=== PATIENT | female | born 1970 | race Caucasian/White ===

== ENCOUNTER 2023-06-19 10:01 | Outpatient (RCR) | payer BC, SELFPAY | END 2023-06-19 23:59 | disposition home or self-care (01) | LOC: RST 10:01 | PROVIDERS: ATTENDING PHYSICIAN Radiology Radiation Oncology; FAMILY PHYSICIAN Family Medicine | DX: C10.9 Malignant neoplasm of oropharynx, unspecified (principal); R13.12 Dysphagia, oropharyngeal phase | CPT/HCPCS: 92526 ==

== ENCOUNTER 2023-07-10 11:07 | Outpatient (RCR) | payer BC, SELFPAY | END 2023-07-10 23:59 | disposition home or self-care (01) | LOC: RST 11:07 | PROVIDERS: ATTENDING PHYSICIAN Radiology Radiation Oncology; FAMILY PHYSICIAN Family Medicine | DX: C10.9 Malignant neoplasm of oropharynx, unspecified (principal); R13.12 Dysphagia, oropharyngeal phase | CPT/HCPCS: 92526 ==

== ENCOUNTER → 2023-08-15 13:31 | Outpatient (REF) | payer BC, SELFPAY | LOC: RAD 13:31 | PROVIDERS: ATTENDING PHYSICIAN Otolaryngology; FAMILY PHYSICIAN Family Medicine | DX: C06.0 Malignant neoplasm of cheek mucosa (principal) | CPT/HCPCS: 71270; Q9967 ==

== ENCOUNTER 2023-08-28 10:10 | Outpatient (RCR) | payer BC, SELFPAY | END 2023-08-28 23:59 | disposition home or self-care (01) | LOC: RST 10:10 | PROVIDERS: ATTENDING PHYSICIAN Radiology Radiation Oncology; FAMILY PHYSICIAN Family Medicine | DX: C10.9 Malignant neoplasm of oropharynx, unspecified (principal); R13.12 Dysphagia, oropharyngeal phase | CPT/HCPCS: 92526 ==

== ENCOUNTER → 2023-08-28 14:41 | Outpatient (REF) | payer BC, SELFPAY | LOC: HWRAD 14:41 | PROVIDERS: ATTENDING PHYSICIAN Otolaryngology; FAMILY PHYSICIAN Family Medicine | DX: K76.89 Other specified diseases of liver (principal) | CPT/HCPCS: 74160; Q9967 ==

== ENCOUNTER 2023-09-14 12:50 | Inpatient (IN) | payer BC, SELFPAY ==
[2023-09-14] VITALS (11 sets, daily range): BP systolic 105–126; BP diastolic 64–83; BMI 20.6; BMI 20.7
--- NOTE | 2023-09-14 06:11 | ED.GENMED ---
History of Present Illness
General
Chief Complaint: Skin Problem
Source: patient
Exam Limitations: none
Time Seen by Provider: 09/14/23 04:51
Nursing documentation reviewed up to this point in time: agreed with
Travel History
Have you had any contact with someone who has COVID-19?: No
Do you have any symptoms of coronavirus? Fever > 100 degrees, chills, cough, shortness of breath, sore throat, loss of taste or smell, muscle aches, or headache?: No
History of Present Illness
History of Present Illness:
53-year-old female presents with painful swelling with drainage from the flap on the left side of her face history of head neck cancer followed by Dr. Davila ENT oncology at [facility] has had 2 flaps most recently January 2023 has
been on amoxicillin for about 4 days without much relief has increased swelling but she always has some swelling now drainage no fever chills with feels generally unwell no vomiting
Past History
Past History
ED Past Medical History: Cancer
ED Past Surgical History: Other (Flap from the thigh flap from the forearm to the face)
Social History
Tobacco: Non-smoker
Alcohol: None
Living: with family
Review of Systems
Review of Systems
All Other Systems: Not applicable
Constitutional: Denies fatigue or chills
EENT: Reports other (Swelling from the left side of the face and drainage)
Respiratory: Reports no symptoms
Cardiac: Reports no symptoms
ABD/GI: Reports no symptoms; Denies abdominal pain or nausea
: Reports no symptoms
Musculoskeletal: Reports no symptoms
Psychiatric: Reports no symptoms
Phy Exam
Physical Exam
Physical Exam:
Physical Exam
General: no apparent distress, not acutely ill
Neck: Swollen surgical flap in the left face minimally tender no warmth mild drainage
Heart: s1/s2 regular rate and rhythm, no murmur. equal radial pulses.
Lungs: no acute respiratory distress.
Neuro: alert and oriented. no focal neurological deficits
Skin: no rash
Psychiatric: well kept. interactive and cooperative
Extremities: no edema.
Course
Orders/Labs/Results
Orders:
Orders
09/14/23 06:10
CT Facial Bones W/ Iv Contrast Urgent
Comment:
Reason For Exam: infected flap
0.9% Sodium Chloride 1000 ml [Nss] 1,000 ml IV BOLUS
Acetaminophen 1000MG/100Ml [Ofirmev] 1,000 mg in 100 ml IV ONCE
Acetaminophen IV Indication:: ED Narcotic Naive Pt-ONCE
09/14/23 06:52
Complete Blood Count/With Diff Urgent
Comprehensive Metabolic Panel Urgent
Lactic Acid Q4H
Comment: CANCEL 2nd LACTIC ACID IF 1st LACTIC ACID IS LESS THAN 2
Blood Culture Q30M
YOSEF Source: Blood/Venous
Specimen Description:
Blood Culture Q30M
YOSEF Source: Blood/Venous
Specimen Description:
09/14/23 09:53
Vancomycin 1000 mg IVPB NOW Vancomycin 1 Gram/200 ml [Vancocin] 1 gram in 200 ml IV NOW
Abnormal Lab Results
09/14/23
06:52
WBC 14.1 H 10^3/uL
(4.8-10.8)
RBC 2.83 L 10^6/uL
(4.20-5.40)
Hgb 8.0 L g/dL
(12.0-16.0)
Hct 24.2 L %
(37.0-47.0)
RDW 14.6 H %
(11.5-14.5)
Abs Immat Gran (auto) 0.1 H 10^3/uL
(0-0.05)
Absolute Neuts (auto) 12.2 H 10^3/uL
(1.4-6.5)
Absolute Lymphs (auto) 0.7 L 10^3/uL
(1.2-3.4)
Absolute Monos (auto) 0.9 H 10^3/uL
(0.1-0.6)
Immature Gran % 0.6 H %
(0-0.5)
Neutrophils % 86.6 H %
(42.2-75.2)
Lymphocytes % 5.1 L %
(20.5-51.1)
Sodium 134 L mmol/L
(135-145)
BUN 25 H mg/dl
(7-17)
Creatinine 0.4 L mg/dL
(0.6-1.0)
Glucose 107 H mg/dl
(70-99)
Lactic Acid 0.6 L mmol/L
(0.7-2.0)
09/14/23 06:52
09/14/23 06:52
Vital Signs
Initial and Last Documented VS:
Initial Vital Signs
Temp Pulse Resp BP Pulse Ox
98.2 F 88 18 118/81 99
09/14/23 04:19 09/14/23 04:19 09/14/23 04:19 09/14/23 04:19 09/14/23 04:19
Last Documented Vital Signs
Temp Pulse Resp BP Pulse Ox
98.2 F 90 18 126/73 96
09/14/23 04:19 09/14/23 09:19 09/14/23 04:19 09/14/23 09:19 09/14/23 08:45
MDM/Problems Addressed
Differential Diagnosis Includes:
Infection cellulitis seroma abscess recurrence of cancer
MDM/Problems Addressed:
Facial swelling
Chronic conditions affecting care:
Head and neck cancer
Acute Exacerbation and/or Progression of Chronic Illness:
Head and neck cancer
*Radiology
Radiology exam reviewed: preliminary read by ED provider
*Pulse Oximetry
Patient hypoxic: no
*Critical Care Note
Total Time (30-74mins, 75-104mins- exclusive of procedures): Not Applicable
Update Note
Update Note:
Update patient is nontoxic does have some drainage her face flap is swollen that she states slowly swollen has not been the bulk yet will check labs cultures CT scan disposition??
9:45 AM CAT scan report noted labs noted believe the patient would benefit from IV antibiotics I do not see any clear indication for transfer as there is no collection message sent to hospitalist will start IV antibiotics here
ED Attending Note
-
Portions of this chart may have been created with voice recognition software.� Occasional wrong word or��sound alike� substitutions may have occurred due to the inherent limitations of voice recognition software.
Discharge Plan
Departure
Patient Disposition: Admit
Date of Disposition: 09/14/23
Time of Disposition: 09:53
Admit to: Med/Surg
Presentation/result/management discussed w/ accepting MD/DO: Hospitalist
Patient with high blood pressure during this ER visit?: No
Condition: Fair
Discharge Problem:
Cellulitis of face
Prescriptions:
No Action
levothyroxine 100 MCG tablet
100 mcg PO DAILY@0700 Qty: 30 0RF
acetaminophen [Tylenol] 325 mg Tablet
650 mg PO Q4H PRN (Reason: pain)
aspirin 325 mg Tablet
325 mg PO DAILY
Referrals:
Nury Dalton MD [Family Provider] -
Interventions
Interventions:
*Risk Screen - Suicide Last Done: 09/14/23 04:19
*General Assessment Last Done: 09/14/23 04:19
*Neglect/Abuse Screening Last Done: 09/14/23 04:19
ED- Fall Risk Assessment Last Done: 09/14/23 04:19
*ED COVID-19 Vaccine History Last Done: 09/14/23 04:19
ED-Skin Assessment Last Done: 09/14/23 06:49
[2023-09-14] MEDS: OFIRMEV 100 IV (06:56)
[2023-09-14] MEDS: NSS 1000 IV ×2 (06:56→10:23)
[2023-09-14 07:19] LABS: % Basophils 0.3 % (0-2); % Immature Granulocytes 0.6 % (0-0.5); % Lymphocytes 5.1 % (20.5-51.1); % Monocytes 6.4 % (1.7-9.3); % Neutrophils 86.6 % (42.2-75.2); Absolute Eosinophils 0.1 10^3/uL (0-0.7); Absolute Immature Granulocytes 0.1 10^3/uL (0-0.05); Absolute Lymphocytes 0.7 10^3/uL (1.2-3.4); Absolute Monocytes 0.9 10^3/uL (0.1-0.6); Absolute Neutrophils 12.2 10^3/uL (1.4-6.5); Hematocrit 24.2 % (37.0-47.0); Mean Corp Hgb Conc. 33.1 g/dL (33.0-37.0); Mean Corpuscular Hgb 28.3 pg (27.0-31.0); Mean Corpuscular Volume 85.5 fL (81.0-99.0); Mean Platelet Volume 8.9 fL (7.4-10.4); Nucleated Red Blood Cells % 0 %; Platelet Count 380 10^3/uL (130-400); Red Blood Cell Count 2.83 10^6/uL (4.20-5.40); Red Cell Dist. Width 14.6 % (11.5-14.5); White Blood Cell Count 14.1 10^3/uL (4.8-10.8)
[2023-09-14 07:31] LABS: ALT (SGPT) 12 U/L (0-35); AST (SGOT) 18 U/L (14-36); Albumin 3.7 g/dl (3.5-5.0); Alkaline Phosphatase 107 U/L (38-126); Blood Urea Nitrogen 25 mg/dl (7-17); Calcium 9.2 mg/dl (8.4-10.2); Carbon Dioxide 22 mmol/L (22-30); Chloride 104 mmol/L (98-107); Estimated Creatinine Clearance 92 ml/min; Glucose 107 mg/dl (70-99); Potassium 4.3 mmol/L (3.5-5.1); Sodium 134 mmol/L (135-145); Total Bilirubin 0.5 mg/dl (0.2-1.3); Total Protein 6.9 g/dl (6.3-8.2); eGFR > 60.00
[2023-09-14 07:33] LABS: Lactic Acid 0.6 mmol/L (0.7-2.0)
[2023-09-14] MEDS: VANCOCIN 300 ML IV (10:06)
[2023-09-14] MEDS: VANCOCIN 300 MG IV (10:06)
[2023-09-14] MEDS: DILAUDID 1 MG IV (10:24)
--- NOTE | 2023-09-14 12:32 | HPS.HSE ---
Family Physician
-
Family Physician: Nury Dalton
Chief Complaint
-
Skin redness
History of Present Illness
53-year-old female with past medical history of buccal cancer status postchemotherapy and radiation, hypothyroidism, skin flap x 2, hypertension came to the hospital with painful swelling with mild drainage from the flap on the left side of her
face. Patient follows up with Dr. Gamez at [facility] who did 2 flaps on the left side of her face (last one in January 2023). Patient saw him on Sunday and they prescribed her amoxicillin. Patient has taken amoxicillin for about 3 days without
much relief. Denies any fever/chills. Denies any nausea, vomiting, diarrhea, denies any chest pain, shortness of breath.
Medical History
Past Medical History
Past Medical History: Reports Cancer (Buccal CA), HTN, Hypothyroidism and Other
Past Surgical History: Reports Other (Buccal cancer surgery, facial flap)
Social History
Tobacco: Non-smoker
Alcohol: None
Family History
Family History: Not pertinent
Allergies / Home Medications
Allergies reflects when Allergies were last updated in [employer].
Home Medications with original date entered in [employer]
Allergy/Medication List:
Allergies
Allergy/AdvReac Type Severity Reaction Status Date / Time
No Known Allergies Allergy Verified 09/14/23 04:17
Home Medications
aspirin 325 mg tablet 325 mg PO DAILY 03/22/23
acetaminophen 325 mg tablet (Tylenol) 650 mg PO Q4HPRN PRN mild pain 03/23/23
amoxicillin 875 mg-potassium clavulanate 125 mg tablet 1 tab PO BID 09/14/23
calcium carbonate 500 mg calcium (1,250 mg) tablet 500 mg PO DAILY 09/14/23
cyanocobalamin (vitamin B-12) 1,000 mcg tablet 1,000 mcg PO DAILY 09/14/23
levothyroxine 100 mcg tablet 100 mcg PO JOANN@0700 09/14/23
magnesium oxide 400 mg PO DAILY 09/14/23
vitamin B complex 1 cap PO DAILY 09/14/23
Review of Systems
-
History Source: Patient
A 12 point ROS was completed and negative except as noted: Yes
Physical Exam
Vital Signs
Vital Signs
Temp Pulse Resp BP Pulse Ox
97.6 F 71 16 110/70 96
09/14/23 10:31 09/14/23 12:00 09/14/23 10:31 09/14/23 12:00 09/14/23 12:00
Physical Exam
General: Well Nourished and No Apparent Distress
HEENT: Anicteric and Other (left facial flap; erythema)
Cardiac: S1/S2 and Regular Rhythm; No Tachycardia
Breast: Deferred by me
GI: Soft, Non Tender, Non Distended and Normal Bowel Sounds
Rectal: Deferred by Provider
Genito-urinary: Deferred by me
Musculoskeletal: No Edema
Neuro: Awake, Alert, Oriented and AO x 3
Psych: Calm and Intact Judgment/Insight
Laboratory Results
-
09/14/23 06:52
09/14/23 06:52
Laboratory Results
Lactic Acid Cancelled 09/14/23 10:15
Total Bilirubin 0.5 mg/dl (0.2-1.3) 09/14/23 06:52
AST 18 U/L (14-36) 09/14/23 06:52
ALT 12 U/L (0-35) 09/14/23 06:52
Alkaline Phosphatase 107 U/L (38-126) 09/14/23 06:52
Data Reviewed
-
CT Scan: Report Reviewed by me and Discussed with Patient
Lab Data: Labs Reviewed by me and Discussed with Patient
Impression/Plan
-
sepsis 2/2 Facial cellulitis in the setting of history of facial flap due to buccal carcinoma
s/p chemo and radiation at [facility]; last one in may 2023; 2 skin flaps (last one jan 2023); her left side face swollen at baseline per patient due to flap, she is due for debulking surgery outpatient
start vanc; ID evaluation
was taking Augmentin prior to admission
CT without distinct abscess
follow bcx
Anemia suspect anemia of chronic disease
Check iron panel, B12, folate
Mild hyponatremia
monitor
hx of htn
not on any meds
History of hypothyroidism
Continue Synthroid
DVT prophylaxis Lovenox
Full code
I spent a total of 76 minutes with the patient or on the floor. More than 50% of this time involved counseling and coordination of care.
--- NOTE | 2023-09-14 12:59 | PHA.VAN.IN ---
Assessment
- Assessment
Renal Function: Appears similar to baseline
AUC Dosing Plan
- Dosing Variables
Dosing Weight (kg): 54
Dosing CrCl (ml/min): 92
Vd coefficient (L/kg): 0.7
- Empiric Dosing
Initial / Loading Dose: 1500mg - 09/13 10:06
Maintenance Regimen: Vanc 750mg Q12H starting at 1800
Estimated AUC (mcg*h/mL): 511
Estimated Peak (mcg*h/mL): 32
Estimated Trough (mcg/ml): 13.2
Estimated Half Life (H): 8.6
- Monitoring
No levels ordered at this time: consider levels in next few days
Pharmacokinetics Vancomycin I
- -
Patient Age: 53
Patient Sex: Female
Vancomycin Day #: 1
Indication: Skin And Soft Tissue
Requesting Provider: Dr. Lorenz
Pertinent Antimicrobial Allergies:
NKDA
Height / Weight:
Height 5 ft 4 in
Actual Weight 54.431 kg
Pertinent Past Medical History: Buccal carcinoma
- Vital Signs / Lab Results
Temp Pulse Resp BP Pulse Ox
97.6 F 71 16 110/70 96
09/14/23 10:31 09/14/23 12:00 09/14/23 10:31 09/14/23 12:00 09/14/23 12:00
Lab Results - Hematology
09/14/23
06:52
WBC 14.1 H
Lab Results - Chemistry
09/14/23
06:52
BUN 25 H
Creatinine 0.4 L
Estimated Creat Clear 92
Albumin 3.7
09/14/23 09/14/23
06:52 10:15
Lactic Acid 0.6 L Cancelled
[2023-09-14 13:37] LABS: Iron 27 ug/dl (37-170)
[2023-09-14 13:46] LABS: Percent Saturation 10 % (20-50); Total Iron Binding Capacity 250 ug/dl (265-497)
[2023-09-14] MEDS: TYLENOL 650 MG PO (14:38)
[2023-09-14 14:45] LABS: Folate 15.6 ng/ml (2.76-20); Vitamin B12 > 1000 pg/ml (239-931)
--- NOTE | 2023-09-14 16:21 | PTOTSP ---
Dysphagia Evaluation
Patient has a history of moderate oral dysphagia and trismus secondary to buccal cancer and subsequent treatments (i.e., chemo/XRT, skin flap x2). She has excellent insight into her dysphagia. She denied any acute worsening of dysphagia with
solids but endorsed increase in aspiration signs with liquids (i.e., coughing with liquids - only when she 'rushes'.)
Assessment was limited to puree and thin liquids this date as patient declined solids available. She presents with an oral dysphagia (i.e., decreased labial seal on left, anterior loss on left) with no significant oral residue for consistencies
assessed and no signs of aspiration. As patient has excellent insight into her dysphagia, consider diet advancement below.
Recommend:
1. Regular diet order (to maximize choices) - with patient to select soft/moist foods from the menu
2. Thin liquids
3. Strategies: cut foods into small bite sized pieces, upright to 90 degrees, small sips/bites, liquid wash and/or lingual sweep to clear any oral residue
4. Medications as best tolerated
5. Will follow up briefly at the acute care level as able/appropriate for dysphagia education and therapeutic assessment. Outpatient therapy warranted after D/C.
--- NOTE | 2023-09-14 17:18 | CON.ID ---
Consultation
-
Date/Time Consultation Requested: 09/14/2023, 1224
Date/Time Consultation Performed: 09/14/2023, 1720
Requesting Provider: Dr. Luis Lorenz
Performing Provider: Dr. Carol Boudreaux
Reason for Consultation: Facial flap infection
Chief Complaint / Past History
Chief Complaint
Left jaw/neck redness with yellow drainage
History of Present Illness
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 3 days ago, she noted
drainage from left jaw with redness that extends down to her neck and chest. She saw the Plastic Surgeon right away who put her on Augmentin. She did not improve and therefore came to the ED. WBC 14. No fever. She reports the flap is chronically
indurated. However, the erythema below the flap is not normal.
Past History
Additional Past Medical History:
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
by chemo/XRT.
PORT placement
Hypothyroidism
HTN
Allergy History:
No Known Allergies Allergy (Verified 09/14/23 04:17)
Medications Reviewed: Yes
Current Antibiotics:
Vancomycin
Social History
Tobacco: Non-Smoker
Alcohol: None
Drug: None
Personal:
Living: With Family
Family History
Family History: Not Pertinent
Review of Systems
Review of Systems
General: Negative Fever, Chills or Change in Appetite
HEENT: Negative Sinus Problems, Headache or Pharyngitis
Respiratory: Negative Dyspnea or Cough
Gasteroenterology: Other (no diarrhea); Negative Nausea or Vomiting
Genital / Urological: Negative Dysuria or Flank Pain
Endocrine: Negative Weakness
Skin / Hair / Nails: Negative Rash
Neurological: Negative Headache or Dizziness
All systems: All other systems were reviewed and were negative
Vital Signs
Temp Pulse Resp BP Pulse Ox
97.6 F 77 14 114/80 97
09/14/23 14:56 09/14/23 14:56 09/14/23 14:56 09/14/23 14:56 09/14/23 14:02
Physical Exam
Physical Exam
Constitutional: No Acute Distress and Comfortable
Head: Other (Left cheek flap induration (chronic and normal per pt) without erythema. Along the margin of the flap + erythema from pre-auricular to mandible to neck, there is wound left mandible with serous drainage.)
Eyes: No Conjunctival Hemorrhage and Sclera Anicteric
Cardiovascular: Regular Rate and S1/S2
Pulmonary: Clear
Gastrointestinal: Soft, Non Tender, Non Distended and Decreased Bowel Sounds
Extremities: Negative Edema
Neurological: AO x 3
Lab / Diagnostic Study Results
09/14/23 06:52
09/14/23 06:52
Abs Immat Gran (auto) 0.1 10^3/uL (0-0.05) H 09/14/23 06:52
Absolute Neuts (auto) 12.2 10^3/uL (1.4-6.5) H 09/14/23 06:52
Absolute Lymphs (auto) 0.7 10^3/uL (1.2-3.4) L 09/14/23 06:52
Absolute Monos (auto) 0.9 10^3/uL (0.1-0.6) H 09/14/23 06:52
Absolute Basos (auto) 0.0 10^3/uL (0-0.2) 09/14/23 06:52
Immature Gran % 0.6 % (0-0.5) H 03/15/24 06:52
Neutrophils % 86.6 % (42.2-75.2) H 09/14/23 06:52
Lymphocytes % 5.1 % (20.5-51.1) L 09/14/23 06:52
Monocytes % 6.4 % (1.7-9.3) 09/14/23 06:52
Eosinophils % 1.0 % (0-6) 09/14/23 06:52
Basophils % 0.3 % (0-2) 09/14/23 06:52
Lactic Acid Cancelled 09/14/23 10:15
Microbiology Results
Micro:
09/14/23 15:32 MRSA Screen - Pending
Nose
09/14/23 06:52 Blood Culture - Pending
Blood/Venous
09/14/23 06:52 Blood Culture - Pending
Blood/Venous
09/14/[address]: Comparing to PET/CT scan of September 05, 2023, there is new ill-defined fluid and air density in the left parapharyngeal region extending adjacent to the posterior aspect of the left mandible. This would suggest infection in
this region. There is no well-defined fluid collection to suggest a drainable abscess at this time.
Assessment / Plan
# Left mandible cellulitis with draining wound
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
- Consider MRI of mandible.
- Add IV Unasyn.
- If MRSA screen negative, dc IV Vancomycin
[2023-09-14] MEDS: VANCOCIN 150 IV (17:24)
[2023-09-14] MEDS: LOVENOX 40 MG SC (17:25)
--- NOTE | 2023-09-14 17:30 | PTCARENOTE ---
Received pt from ER. Pt awake alert and oriented x 3. Pt has garbled speech r/t flap skin graft on Left face cheek, Pt c/o pain in left cheek medicated with tylenol prior to arrival to floor. Pt VSS 96% on RA.Pt has no c/o SOB, instructed to alert
staff with any changes in breathing, pt verbalized understanding. Pt has flap skin graft to left cheek, area below with redness, warmth extending down neck.Pt said redness was down chest prior to abx infusion, so some improvement noted. At base of
mandible open area with purulent drainage and odor. Pt using 4x4 and ABDs and changing frequently. Slow drip of purulent fluid. pt does feel like opening is larger, MD aware, could be related to pressure from fluid drainage. Pt oriented to room,call
marrero within reach, plan of care ongoing.
[2023-09-14] MEDS: UNASYN IV ×2 (18:23→23:28)
[2023-09-14] MEDS: TYLENOL 1000 MG PO (19:58)
[2023-09-15] MEDS: UNASYN IV ×4 (05:04→23:12)
[2023-09-15 05:31] LABS: % Basophils 0.6 % (0-2); % Eosinophils 3.1 % (0-6); % Immature Granulocytes 0.9 % (0-0.5); % Lymphocytes 12.1 % (20.5-51.1); % Monocytes 10.2 % (1.7-9.3); % Neutrophils 73.1 % (42.2-75.2); Absolute Eosinophils 0.2 10^3/uL (0-0.7); Absolute Immature Granulocytes 0.1 10^3/uL (0-0.05); Absolute Lymphocytes 0.8 10^3/uL (1.2-3.4); Absolute Monocytes 0.7 10^3/uL (0.1-0.6); Absolute Neutrophils 4.9 10^3/uL (1.4-6.5); Hematocrit 22.7 % (37.0-47.0); Hemoglobin 7.4 g/dL (12.0-16.0); Mean Corp Hgb Conc. 32.6 g/dL (33.0-37.0); Mean Corpuscular Hgb 27.9 pg (27.0-31.0); Mean Corpuscular Volume 85.7 fL (81.0-99.0); Mean Platelet Volume 8.7 fL (7.4-10.4); Nucleated Red Blood Cells % 0 %; Platelet Count 378 10^3/uL (130-400); Red Blood Cell Count 2.65 10^6/uL (4.20-5.40); Red Cell Dist. Width 14.6 % (11.5-14.5); White Blood Cell Count 6.8 10^3/uL (4.8-10.8)
[2023-09-15] MEDS: VANCOCIN 150 IV ×2 (05:42→17:53)
[2023-09-15] MEDS: SYNTHROID 100 MCG PO (05:43)
[2023-09-15] MEDS: TYLENOL 1000 MG PO ×4 (05:50→22:28)
[2023-09-15 05:54] VITALS: BMI 20.3
[2023-09-15 05:54] LABS: Blood Urea Nitrogen 13 mg/dl (7-17); Calcium 9.2 mg/dl (8.4-10.2); Carbon Dioxide 25 mmol/L (22-30); Chloride 103 mmol/L (98-107); Estimated Creatinine Clearance 92 ml/min; Glucose 98 mg/dl (70-99); Potassium 4.3 mmol/L (3.5-5.1); Sodium 136 mmol/L (135-145); eGFR > 60.00
[2023-09-15 07:45] VITALS: BP 117/72
[2023-09-15] MEDS: MAG-TAB SR 84 MG PO (08:27)
[2023-09-15] MEDS: VITAMIN B-12 1000 MCG PO (08:27)
[2023-09-15] MEDS: B COMPLEX w/VITAMIN C 1 CAPLET PO (08:27)
[2023-09-15] MEDS: OSCAL CAL 500 500 MG PO (08:27)
--- NOTE | 2023-09-15 08:46 | PHA.VAN.FU ---
Vancomycin Assessment / Plan
- Assessment
Renal Function: SCR Decreasing (0.4>0.3)
WBC's are: Trending Down (14.1>6.8)
In the past 24 hrs, patient has been: Afebrile
Concomitant Antimicrobials: Ampicillin-sulbactam
- Dosing Plan
Continue: Vancomycin 750mg IV Q12hrs
- Monitoring Plan
No level(s) ordered at this time: Will order levels according to vancomycin dosing protocol
- Follow Up
Pharmacy will continue to follow.
Vancomycin Follow UP
- -
Patient Age: 53
Patient Sex: Female
Vancomycin Day #: 2
Indication: Skin And Soft Tissue
Requesting Provider: Dr. Lorenz
Pertinent Antimicrobial Allergies:
NKDA
Height / Weight:
Height 5 ft 4 in
Actual Weight 53.552 kg
Pertinent Past Medical History: Buccal carcinoma
- Vital Signs / Lab Results
Temp Pulse Resp BP Pulse Ox
97.5 F 72 18 117/72 98
09/15/23 07:45 09/15/23 07:45 09/15/23 07:45 09/15/23 07:45 09/15/23 07:45
Lab Results - Hematology
09/14/23 09/15/23
06:52 05:04
WBC 14.1 H 6.8
Lab Results - Chemistry
09/14/23 09/15/23
06:52 05:04
BUN 25 H 13
Creatinine 0.4 L 0.3 L
Estimated Creat Clear 92 92
Albumin 3.7
09/14/23 09/14/23
06:52 10:15
Lactic Acid 0.6 L Cancelled
Microbiology Results
09/14/23 06:52 Blood Culture - Preliminary
Blood/Venous No Growth in 24 hours- Final report to follow
09/14/23 06:52 Blood Culture - Preliminary
Blood/Venous No Growth in 24 hours- Final report to follow
--- NOTE | 2023-09-15 10:08 | W.PN.ID1 ---
Date of Service
Date of Service: September 15, 2023
Today's Communication
Continue abx's.
Assessment / Plan
# Left mandible cellulitis with draining wound
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 Wound appears larger.
- If no significant improvement tomorrow, recommend MRI of mandible.
- Continue IV Unasyn (d2)
- If MRSA screen negative, dc IV Vancomycin
#Additional Past Medical History:
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
followed by chemo/XRT.
PORT placement
Hypothyroidism
HTN
Chief Complaint
-: Cellulitis
Subjective / Review of Systems
Reports left jaw drainage decreased.
Vital Signs / Physical Exam
Vital Signs
Vital Signs
Temp Pulse Resp BP Pulse Ox
97.5 F 72 18 117/72 98
09/15/23 07:45 09/15/23 07:45 09/15/23 07:45 09/15/23 07:45 09/15/23 07:45
Physical Exam
Constitutional: No Acute Distress and Comfortable
Head: Other (left mandibular wound appears larger with light yellow drainage. Erythema now more localized to wound area.)
Pulmonary: Clear
Objective Data
Lab Data
Lab Results
09/15/23 05:04
09/15/23 05:04
Estimated Creat Clear 92 ml/min 09/15/23 05:04
Lactic Acid Cancelled 09/14/23 10:15
Total Bilirubin 0.5 mg/dl (0.2-1.3) 09/14/23 06:52
AST 18 U/L (14-36) 09/14/23 06:52
ALT 12 U/L (0-35) 09/14/23 06:52
Alkaline Phosphatase 107 U/L (38-126) 09/14/23 06:52
Most recent labs reviewed.
Micro Results:
09/14/23 06:52 Blood Culture - Preliminary
Blood/Venous No Growth in 24 hours- Final report to follow
09/14/23 06:52 Blood Culture - Preliminary
Blood/Venous No Growth in 24 hours- Final report to follow
09/14/23 15:32 MRSA Screen - Pending
Nose
09/14/[address]: Comparing to PET/CT scan of September 05, 2023, there is new ill-defined fluid and air density in the left parapharyngeal region extending adjacent to the posterior aspect of the left mandible. This would suggest infection in
this region. There is no well-defined fluid collection to suggest a drainable abscess at this time.
Care Review
Plan reviewed with: Physician (Dr. licona)
--- NOTE | 2023-09-15 12:59 | W.PN.HOSP.TC ---
Today's Communication/Plan
-
Monitor vital signs and see plan
Continue with antibiotics per infectious disease
Repeat hemoglobin later today
Transfuse if hemoglobin less than 7
Blood consented, in chart
Assessment / Plan
Assessment / Plan
General: Well Nourished and No Apparent Distress
HEENT: Anicteric and Other (left facial flap; erythema)
Cardiac: S1/S2 and Regular Rhythm; No Tachycardia
Breast: Deferred by me
GI: Soft, Non Tender, Non Distended and Normal Bowel Sounds
Rectal: Deferred by Provider
Genito-urinary: Deferred by me
Musculoskeletal: No Edema
Neuro: Awake, Alert, Oriented and AO x 3
Psych: Calm and Intact Judgment/Insight
sepsis 2/2 Facial cellulitis in the setting of history of facial flap due to buccal carcinoma
s/p [facility]; last one in may 2023; 2 skin flaps (last one jan 2023); her left side face swollen at baseline per patient due to flap, she is due for debulking surgery outpatient
cw abx per ID; ID following
was taking Augmentin prior to admission
CT without distinct abscess
follow bcx NGTD
If symptoms do not improve then will get MRI mandible
Anemia suspect anemia of chronic disease
No definite bleed
Iron deficient, start IV iron
Repeat hemoglobin later today and transfuse hemoglobin less than 7; blood consented
Mild hyponatremia
Resolved
hx of htn
not on any meds
History of hypothyroidism
Continue Synthroid
DVT prophylaxis Lovenox
Full code
I spent a total of 52 minutes with the patient or on the floor. More than 50% of this time involved counseling and coordination of care.
Anticipated Discharge: > 48 hours
Subjective/Interval History
-
Date of Service: September 15, 2023
denies nausea
Objective Data
-
Labs:
Laboratory Results
09/15/23
05:04
WBC 6.8
Hgb 7.4 L
Hct 22.7 L
Plt Count 378
Sodium 136
Potassium 4.3
Chloride 103
Carbon Dioxide 25
BUN 13
Creatinine 0.3 L
Glucose 98
Calcium 9.2
Vital Signs:
Vital Signs
Temp Pulse Resp BP Pulse Ox
97.5 F 72 18 117/72 98
09/15/23 07:45 09/15/23 07:45 09/15/23 07:45 09/15/23 07:45 09/15/23 07:45
I&O
09/14/23 09/15/23 09/16/23
06:59 06:59 06:59
Intake Total 660 / 660
Balance 660 / 660
[2023-09-15] MEDS: FERRLECIT 110 MG IV (13:11)
[2023-09-15 15:28] VITALS: BP 115/77
--- NOTE | 2023-09-15 16:16 | CM ---
Alert awake oriented patient who lives with her Jonas and adult daughter who lives in a2 story home with 4 steps to enter and 10 steps to bed and bathroom.She is independent in driving and in all activities of daily living.Offered VN for
wound care and she declined.
No adaptive devices
Never had VN/SNF
Pharmacy [facility]
PCP Dr Dalton
PLAN Home declined VN
[2023-09-15 16:38] LABS: Hematocrit 22.5 % (37.0-47.0); Hemoglobin 7.5 g/dL (12.0-16.0)
[2023-09-15] MEDS: LOVENOX 40 MG SC (17:19)
[2023-09-15 23:49] VITALS: BP 116/77
[2023-09-15] MEDS: FLUSH (NSS) 1 FLUSH IV (23:55)
[2023-09-16] MEDS: UNASYN IV ×4 (05:14→23:00)
[2023-09-16] MEDS: VANCOCIN 150 IV (05:49)
[2023-09-16] MEDS: TYLENOL 1000 MG PO ×3 (05:55→18:33)
[2023-09-16 06:00] VITALS: BMI 20.3
[2023-09-16 06:00] LABS: % Basophils 1.3 % (0-2); % Eosinophils 4.4 % (0-6); % Immature Granulocytes 1.3 % (0-0.5); % Lymphocytes 14.8 % (20.5-51.1); % Monocytes 12.8 % (1.7-9.3); % Neutrophils 65.4 % (42.2-75.2); Absolute Basophils 0.1 10^3/uL (0-0.2); Absolute Eosinophils 0.2 10^3/uL (0-0.7); Absolute Immature Granulocytes 0.1 10^3/uL (0-0.05); Absolute Lymphocytes 0.8 10^3/uL (1.2-3.4); Absolute Monocytes 0.7 10^3/uL (0.1-0.6); Absolute Neutrophils 3.4 10^3/uL (1.4-6.5); Hematocrit 22.3 % (37.0-47.0); Hemoglobin 7.3 g/dL (12.0-16.0); Mean Corp Hgb Conc. 32.7 g/dL (33.0-37.0); Mean Corpuscular Hgb 27.9 pg (27.0-31.0); Mean Corpuscular Volume 85.1 fL (81.0-99.0); Mean Platelet Volume 8.8 fL (7.4-10.4); Nucleated Red Blood Cells % 0 %; Platelet Count 389 10^3/uL (130-400); Red Blood Cell Count 2.62 10^6/uL (4.20-5.40); Red Cell Dist. Width 14.6 % (11.5-14.5); White Blood Cell Count 5.2 10^3/uL (4.8-10.8)
[2023-09-16 06:25] LABS: Blood Urea Nitrogen 16 mg/dl (7-17); Calcium 8.9 mg/dl (8.4-10.2); Carbon Dioxide 24 mmol/L (22-30); Chloride 107 mmol/L (98-107); Estimated Creatinine Clearance 91 ml/min; Glucose 93 mg/dl (70-99); Potassium 4.1 mmol/L (3.5-5.1); Sodium 137 mmol/L (135-145); eGFR > 60.00
[2023-09-16 07:31] VITALS: BP 111/71
[2023-09-16] MEDS: VITAMIN B-12 1000 MCG PO (08:39)
[2023-09-16] MEDS: B COMPLEX w/VITAMIN C 1 CAPLET PO (08:39)
[2023-09-16] MEDS: OSCAL CAL 500 500 MG PO (08:39)
[2023-09-16] MEDS: MAG-TAB SR 84 MG PO (08:39)
--- NOTE | 2023-09-16 08:51 | W.PN.ID1 ---
Date of Service
Date of Service: September 16, 2023
Today's Communication
MRI mandible.
Assessment / Plan
# Left mandible cellulitis with draining wound
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
- Order MRI of mandible.
- Swab draining wound for cx (although may not reflect deep cx's)
- Continue IV Unasyn (d3)
- If MRSA screen negative, dc IV Vancomycin
#Additional Past Medical History:
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
followed by chemo/XRT.
PORT placement
Hypothyroidism
HTN
Chief Complaint
-: Cellulitis
Subjective / Review of Systems
Wound still draining
Vital Signs / Physical Exam
Vital Signs
Vital Signs
Temp Pulse Resp BP Pulse Ox
98.9 F 76 16 116/77 96
09/15/23 23:49 09/15/23 23:49 09/15/23 23:49 09/15/23 23:49 09/15/23 23:49
Physical Exam
Constitutional: No Acute Distress
Wound: Other (left mandible wound with surrounding erythema/induration, foul smelling drainage. )
Objective Data
Lab Data
Lab Results
09/16/23 05:32
09/16/23 05:32
Estimated Creat Clear 91 ml/min 09/16/23 05:32
Lactic Acid Cancelled 09/14/23 10:15
Total Bilirubin 0.5 mg/dl (0.2-1.3) 09/14/23 06:52
AST 18 U/L (14-36) 09/14/23 06:52
ALT 12 U/L (0-35) 09/14/23 06:52
Alkaline Phosphatase 107 U/L (38-126) 09/14/23 06:52
Most recent labs reviewed.
Micro Results:
09/14/23 06:52 Blood Culture - Preliminary
Blood/Venous No Growth in 48 hours- Final report to follow
09/14/23 06:52 Blood Culture - Preliminary
Blood/Venous No Growth in 48 hours- Final report to follow
09/14/23 15:32 MRSA Screen - Pending
Nose
09/14/[address]: Comparing to PET/CT scan of September 05, 2023, there is new ill-defined fluid and air density in the left parapharyngeal region extending adjacent to the posterior aspect of the left mandible. This would suggest infection in
this region. There is no well-defined fluid collection to suggest a drainable abscess at this time.
Care Review
Plan reviewed with: Physician (Dr. Brittney Lorenz)
[2023-09-16] MEDS: FLUSH (NSS) 2 FLUSH IV (11:19)
[2023-09-16 12:40] VITALS: BP 108/75
--- NOTE | 2023-09-16 12:50 | W.PN.HOSP.TC ---
Addendum entered and electronically signed by Luis Lorenz MD 09/18/23 11:55:
Unable to determine if cellulitis/osteomyelitis is secondary to previous surgery
Original Note:
Today's Communication/Plan
-
Monitor vitals
see plan
Continue with antibiotics
MRI
Transfuse 1 unit of PRBC
Assessment / Plan
Assessment / Plan
General: Well Nourished and No Apparent Distress
HEENT: Anicteric and Other (left facial flap; erythema)
Cardiac: S1/S2 and Regular Rhythm; No Tachycardia
Breast: Deferred by me
GI: Soft, Non Tender, Non Distended and Normal Bowel Sounds
Rectal: Deferred by Provider
Genito-urinary: Deferred by me
Musculoskeletal: No Edema
Neuro: Awake, Alert, Oriented and AO x 3
Psych: Calm and Intact Judgment/Insight
sepsis 2/2 Facial cellulitis in the setting of history of facial flap due to buccal carcinoma
s/p chemo and radiation at [facility]; last one in may 2023; 2 skin flaps (last one jan 2023); her left side face swollen at baseline per patient due to flap, she is due for debulking surgery outpatient
cw abx per ID; ID following
was taking Augmentin prior to admission
CT without distinct abscess
follow bcx NGTD
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 MRI ordered
follows up with Dr Gamez at [facility]
Anemia suspect anemia of chronic disease
No definite bleed
Iron deficient, started IV iron
hgb 7.3 today; transfuse 1 unit
Mild hyponatremia
Resolved
hx of htn
not on any meds
History of hypothyroidism
Continue Synthroid
DVT prophylaxis Lovenox
Full code
I spent a total of 53 minutes with the patient or on the floor. More than 50% of this time involved counseling and coordination of care.
Anticipated Discharge: > 48 hours
Subjective/Interval History
-
Date of Service: September 16, 2023
denies pain
Objective Data
-
Labs:
Laboratory Results
09/16/23
05:32
WBC 5.2
Hgb 7.3 L
Hct 22.3 L
Plt Count 389
Sodium 137
Potassium 4.1
Chloride 107
Carbon Dioxide 24
BUN 16
Creatinine 0.3 L
Glucose 93
Calcium 8.9
Vital Signs:
Vital Signs
Temp Pulse Resp BP Pulse Ox
97.9 F 80 16 108/75 98
09/16/23 12:40 09/16/23 12:40 09/16/23 12:40 09/16/23 12:40 09/16/23 12:40
I&O
09/15/23 09/16/23 09/17/23
06:59 06:59 06:59
Intake Total 660 / 660 1360 / 1360 0 / 0
Balance 660 / 660 1360 / 1360 0 / 0
[2023-09-16 12:57] VITALS: BP 115/74
[2023-09-16 15:27] VITALS: BP 117/71
[2023-09-16] MEDS: FERRLECIT 110 MG IV (15:54)
--- NOTE | 2023-09-16 18:23 | PTCARENOTE ---
Pt completed entire unit of PRBCs without any apparent reaction at 1527.
[2023-09-16] MEDS: LOVENOX 40 MG SC (18:24)
[2023-09-16 21:23] LABS: Transferrin 202 mg/dL (200-360)
[2023-09-16 23:35] VITALS: BP 121/71
[2023-09-17] MEDS: UNASYN IV ×2 (05:03→11:35)
[2023-09-17] MEDS: TYLENOL 1000 MG PO ×2 (05:08→12:11)
[2023-09-17] MEDS: SYNTHROID 100 MCG PO (05:42)
[2023-09-17 06:00] VITALS: BMI 20.3
[2023-09-17 07:35] VITALS: BP 124/82
[2023-09-17] MEDS: OSCAL CAL 500 500 MG PO (08:06)
[2023-09-17] MEDS: VITAMIN B-12 1000 MCG PO (08:06)
[2023-09-17] MEDS: MAG-TAB SR 84 MG PO (08:06)
[2023-09-17] MEDS: B COMPLEX w/VITAMIN C 1 CAPLET PO (08:06)
[2023-09-17 08:51] LABS: % Basophils 1.4 % (0-2); % Eosinophils 4.1 % (0-6); % Immature Granulocytes 1.8 % (0-0.5); % Lymphocytes 17.5 % (20.5-51.1); % Monocytes 12.2 % (1.7-9.3); Absolute Basophils 0.1 10^3/uL (0-0.2); Absolute Eosinophils 0.2 10^3/uL (0-0.7); Absolute Immature Granulocytes 0.1 10^3/uL (0-0.05); Absolute Lymphocytes 0.9 10^3/uL (1.2-3.4); Absolute Monocytes 0.6 10^3/uL (0.1-0.6); Absolute Neutrophils 3.2 10^3/uL (1.4-6.5); Hematocrit 26.9 % (37.0-47.0); Mean Corp Hgb Conc. 32.7 g/dL (33.0-37.0); Mean Corpuscular Volume 85.7 fL (81.0-99.0); Mean Platelet Volume 8.6 fL (7.4-10.4); Nucleated Red Blood Cells % 0 %; Platelet Count 437 10^3/uL (130-400); Red Blood Cell Count 3.14 10^6/uL (4.20-5.40); Red Cell Dist. Width 14.7 % (11.5-14.5); White Blood Cell Count 5.1 10^3/uL (4.8-10.8)
[2023-09-17 09:03] LABS: Blood Urea Nitrogen 12 mg/dl (7-17); Calcium 9.5 mg/dl (8.4-10.2); Carbon Dioxide 26 mmol/L (22-30); Chloride 103 mmol/L (98-107); Estimated Creatinine Clearance 91 ml/min; Glucose 97 mg/dl (70-99); Potassium 4.2 mmol/L (3.5-5.1); Sodium 139 mmol/L (135-145); eGFR > 60.00
[2023-09-17 09:07] LABS: Hemoglobin 8.8 g/dL (12.0-16.0)
--- NOTE | 2023-09-17 10:56 | W.PN.ID1 ---
Date of Service
Date of Service: September 17, 2023
Today's Communication
functional manager to set up home IV abx.
Assessment / Plan
# Left mandible cellulitis, draining wound, and osteomyelitis
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
- MRI of face: osteo of left mandible body, angle, and ramus. No osteonecrosis
- Swab draining wound for cx (although may not reflect deep cx's) GS: GPC
- MRSA screen negative, dc'd IV Vancomycin
- Recommend 6 weeks IV Unasyn (d4) 12g/24h continuous infusion through 10/25/23
Home infusion sheet submitted to case management.
#Additional Past Medical History:
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
followed by chemo/XRT.
PORT placement
Hypothyroidism
HTN
Chief Complaint
-: Cellulitis and Other
Vital Signs / Physical Exam
Vital Signs
Vital Signs
Temp Pulse Resp BP Pulse Ox
97.8 F 70 16 124/82 98
09/17/23 07:35 09/17/23 07:35 09/17/23 07:35 09/17/23 07:35 09/17/23 07:35
Physical Exam
Constitutional: No Acute Distress
Pulmonary: Clear
Gastrointestinal: Soft, Non Tender and Non Distended
Wound: Other (left mandible wound with bright erythema, neck and facial erythema resolving)
Objective Data
Lab Data
Lab Results
09/17/23 07:59
09/17/23 07:59
Estimated Creat Clear 91 ml/min 09/17/23 07:59
Lactic Acid Cancelled 09/14/23 10:15
Total Bilirubin 0.5 mg/dl (0.2-1.3) 09/14/23 06:52
AST 18 U/L (14-36) 09/14/23 06:52
ALT 12 U/L (0-35) 09/14/23 06:52
Alkaline Phosphatase 107 U/L (38-126) 09/14/23 06:52
Most recent labs reviewed.
Micro Results:
09/16/23 10:46 Wound Culture - Preliminary
Abscess Gram Stain - Preliminary
09/16/23 10:46 Anaerobic Culture - Preliminary
Wound-Superficial Culture pending. Anaerobic cultures are examined after 3
days incubation. Additional information to follow.
09/14/23 06:52 Blood Culture - Preliminary
Blood/Venous No Growth in 72 hours- Final report to follow
09/14/23 06:52 Blood Culture - Preliminary
Blood/Venous No Growth in 72 hours- Final report to follow
09/14/23 15:32 MRSA Screen - Final
Nose No Methicillin Resistant Staphylococcus aureus isolated.
09/14/[address]: Comparing to PET/CT scan of September 05, 2023, there is new ill-defined fluid and air density in the left parapharyngeal region extending adjacent to the posterior aspect of the left mandible. This would suggest infection in
this region. There is no well-defined fluid collection to suggest a drainable abscess at this time.
09/17/23: MRI face wo and w contrast: Postsurgical changes in the left buccal/facial region. There is increased T2 and STIR signal as well as enhancing intermediate T1-weighted signal involving the body, angle, and ramus of the left mandible. These
findings are suspicious for osteomyelitis. See above discussion. No MR findings to suggest osteonecrosis of the mandible. Enhancing intermediate T1-weighted signal within the left facial region, surrounding the left mandible mainly, also extending
superiorly in the masseter space and deep to the zygomatic arch. This is suggestive of cellulitis, although there could also be a component from previous radiation therapy. There are small foci of decreased enhancement adjacent to the mandibular
angle and ramus, mainly lateral, and would suggest small infected collections, probably best seen on axial sequence 902, images 37 through 30.
--- NOTE | 2023-09-17 11:41 | W.PN.HOSP.TC ---
Addendum entered and electronically signed by Andrei Duarte MD 09/20/23 07:47:
Acute osteomyelitis
Addendum entered and electronically signed by Andrei Duarte MD 09/17/23 12:51:
Total time spent on d/c = 31 min. This included today's physical exam, progress note, review of laboratory and diagnostic data, preparation of discharge documents and prescriptions, and discussions about the pt's hospital course and discharge plan
with the patient and other medical translator involved in the patient's care.
Original Note:
Today's Communication/Plan
-
d/c
Assessment / Plan
Assessment / Plan
Gen: NAD, AAOx3.
Eyes: EOMI, PERRLA, no scleral icterus.
ENMT: L face with prominent/protruding soft tissue
Neck: supple.
CV: RRR, +S1/S2, no m/r/g.
Resp: CTAB, no rales, wheezes, or rhonchi.
Abd: +BS, soft, NT, ND
Skin: No rashes.
Neuro: CN 2-12 intact, non-focal.
Psych: Normal mood and affect.
09/16/23 10:46 Abscess Wound Culture - Preliminary
09/16/23 10:46 Abscess Gram Stain - Preliminary
09/16/23 10:46 Wound-Superficial Anaerobic Culture - Preliminary
Culture pending. Anaerobic cultures are examined after 3
days incubation. Additional information to follow.
09/14/23 06:52 Blood/Venous Blood Culture - Preliminary
No Growth in 72 hours- Final report to follow
09/14/23 06:52 Blood/Venous Blood Culture - Preliminary
No Growth in 72 hours- Final report to follow
09/14/23 15:32 Nose MRSA Screen - Final
No Methicillin Resistant Staphylococcus aureus isolated.
MRI face: Postsurgical changes in the left buccal/facial region. There is increased T2 and STIR signal as well as enhancing intermediate T1-weighted signal involving the body, angle, and ramus of the left mandible. These findings are suspicious for
osteomyelitis. See above discussion. No MR findings to suggest osteonecrosis of the mandible. Enhancing intermediate T1-weighted signal within the left facial region, surrounding the left mandible mainly, also extending superiorly in the masseter
space and deep to the zygomatic arch. This is suggestive of cellulitis, although there could also be a component from previous radiation therapy. There are small foci of decreased enhancement adjacent to the mandibular angle and ramus, mainly
lateral, and would suggest small infected collections, probably best seen on axial sequence 902, images 37 through 30.
Sepsis due to facial cellulitis and L mandibular osteomyelitis:
-In the setting of history of facial flap due to buccal carcinoma
-s/p chemo and radiation at [facility]; last one in may 2023; 2 skin flaps (last one jan 2023); her left side face swollen at baseline per patient due to flap, she is due for debulking surgery outpatient
-was taking Augmentin prior to admission
-MRSA screen NEG, Vanco stopped
-will need 6 weeks IV Unasyn (through 10/25/23). Case discussed with Dr. Boudreaux over [facility]. No need for ENT consultation while hospitalized here as she follows up with plastic surgery at [facility]
Other problems:
Anemia of chronic disease: s/p 1U pRBCs, trend Hb as needed
Mild hyponatremia, resolved
Hypothyroidism: continue Synthroid
FULL/Lovenox
Medically cleared for d/c, case management aware.
Anticipated Discharge: Today
Subjective/Interval History
-
Date of Service: September 17, 2023
No new complaints.
Objective Data
-
Labs:
Laboratory Results
09/17/23
07:59
WBC 5.1
Hgb 8.8 L D
Hct 26.9 L
Plt Count 437 H
Sodium 139
Potassium 4.2
Chloride 103
Carbon Dioxide 26
BUN 12
Creatinine 0.4 L
Glucose 97
Calcium 9.5
Vital Signs:
Vital Signs
Temp Pulse Resp BP Pulse Ox
97.8 F 70 16 124/82 98
09/17/23 07:35 09/17/23 07:35 09/17/23 07:35 09/17/23 07:35 09/17/23 07:35
I&O
09/16/23 09/17/23 09/18/23
06:59 06:59 06:59
Intake Total 1360 / 1360 1680 / 1680
Balance 1360 / 1360 1680 / 1680
[2023-09-17] MEDS: FERRLECIT 110 MG IV (13:31)
[2023-09-17 15:05] VITALS: BP 93/56
--- NOTE | 2023-09-17 16:17 | CM ---
CM following re: d/c planning
Chart reviewed
Pt is medically stable for d/c
Pt will continue IV antibiotics for 6 weeks
Pt is set up with [facility]; port already in place
CM faxed the script, and requested clinicals which were received
Lisseth/[facility] RN met patient at bedside for medication administration/teaching; pt confirmed being comfortable after teaching
[facility] will also provide the SN with no need for an outside VN agency
No additional d/c needs to note
Pt insurance does not dictate IMM
PLAN; d/c home w/[facility] infusion
--- NOTE | 2023-09-18 10:27 | PN.CDI ---
CDI
- -
CDI:
Physician Documentation Request
Admit Date: 09/14/23 12:50
Dear Doctor Gerald,
Patient admitted for facial cellulitis and osteomyelitis.
ED Physician Documentation: 'has been on amoxicillin for about 4 days without much relief has increased swelling but she always has some swelling now drainage'
09/16 Infectious Disease PN: 'MRI of face: osteo of left mandible body, angle, and ramus...Recommend 6 weeks IV Unasyn (d4) 12g/24h continuous infusion through 10/25/23'
Clarify which of the following accurately represents the acuity of the osteomyelitis. Possible options might include:
____ Acute
Acute on Chronic
____ Other
Use of terms such as suspected, likely, concern for, or probable (associated with a specific diagnosis that is being evaluated, monitored, or treated as if it exists) are acceptable and can be coded in the inpatient setting, when documented at the
time of discharge.
Thank you,
Kasey Garcia RN, BSN
CDI Specialist
Available via [facility] text
Please use your independent medical judgment in providing your response.
--- NOTE | 2023-09-18 11:42 | PN.CDI ---
CDI
- -
CDI:
Physician Documentation Request
Admit Date: 09/14/23 12:50
Dear Doctor Kelechi,
Patient admitted for cellulitis and osteomyelitis.
09/15 Hospitalist PN: 'sepsis 2/2 Facial cellulitis in the setting of history of facial flap due to buccal carcinoma'
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
Please clarify the following:
Cellulitis/osteomyelitis is a complication of the surgery
Cellulitis/osteomyelitis is unexpected but is NOT a complication of the surgery
Cellulitis/osteomyelitis is an expected occurrence and is not a complication of surgery
Cellulitis/osteomyelitis is inherent to/unavoidable during the surgery and is not a complication
Other
Use of terms such as suspected, likely, concern for, or probable (associated with a specific diagnosis that is being evaluated, monitored, or treated as if it exists) are acceptable and can be coded in the inpatient setting, when documented at the
time of discharge.
Thank you,
Kasey Garcia RN, BSN
CDI Specialist
Available via [place] text
Please use your independent medical judgment in providing your response.
--- NOTE | 2023-09-20 15:27 | W.DCSUMMARY ---
Discharge Summary
Discharge Data
Date of Admission: 09/14/23
Date of Discharge: 09/17/23
-
Pending Results: No
Hospital Course
Primary diagnoses:
Sepsis due to facial cellulitis and acute left mandibular osteomyelitis
Secondary diagnoses:
Left buccal cancer s/p chemotherapy and radiation, skin flap x 2
Anemia of chronic disease
Mild hyponatremia
Hypothyroidism
Consultants:
Infectious disease
Imaging:
MRI face: Postsurgical changes in the left buccal/facial region. There is increased T2 and STIR signal as well as enhancing intermediate T1-weighted signal involving the body, angle, and ramus of the�left mandible. These findings are suspicious
for�osteomyelitis. See above discussion. No MR findings to suggest osteonecrosis of the mandible. Enhancing intermediate T1-weighted signal within the left facial region, surrounding the left mandible mainly, also extending superiorly in the
masseter space and deep to the zygomatic arch. This is suggestive of cellulitis, although there could also be a component from previous radiation therapy. There are small foci of decreased enhancement adjacent to the mandibular angle and ramus,
mainly lateral, and would suggest small infected collections, probably best seen on axial sequence 902, images 37 through 30.
Hospital course: 53-year-old female who presented with chief complaint of left facial 'skin redness' (in the setting of history of facial flap due to buccal carcinoma) as outlined in the H&P done on admission. The patient met sepsis criteria on
admission. She was taking antibiotics prior to admission. She was placed on IV vancomycin and Unasyn. Imaging above. Her MRSA screen was negative and vancomycin was stopped. She was seen in consultation by infectious disease. On discharge she
was to complete 6 weeks of IV Unasyn (through 10/25/23).
Discharge Plan
-
Patient Disposition: Home with Home Care
Discharge Diagnosis/Procedures: Sepsis due to facial cellulitis and Left mandibular osteomyelitis
Condition: Good
Diet: No restrictions
Activity: No restrictions
Driving Restrictions: As prior to admission
Blood Work: BMP and CBC in 1 week, script from PCP
Other Services: VN
Referrals:
Nury Dalton MD [Family Provider] -
Carol Boudreaux MD [Active] - in three to four weeks
Prescriptions:
New
Ampicillin/Sulbactam 3 G [Unasyn] 3 GM
0.9% Sodium Chloride 100 ml [Nss] 100 ML
240 mls/hr IV Q6H
Ordered By: Andrei Duarte MD
Last Taken: 09/17/23 11:35 120 mls
Continued
acetaminophen [Tylenol] 325 mg Tablet
650 mg PO Q4HPRN PRN (Reason: mild pain)
aspirin 325 mg Tablet
325 mg PO DAILY
cyanocobalamin (vitamin B-12) 1,000 mcg Tablet
1,000 mcg PO DAILY
calcium carbonate 500 mg calcium (1,250 mg) Tablet
500 mg PO DAILY
vitamin B complex Capsule
1 cap PO DAILY
magnesium oxide 400 mg magnesium Tablet
400 mg PO DAILY
levothyroxine 100 MCG tablet
100 mcg PO MOTUWETHFRSA@0700
Discontinued
amoxicillin-pot clavulanate [Augmentin] 875-125 mg Tablet
1 tab PO BID
Patient Comments:
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
Discharge Orders:
Discharge Patient (As Directed); Ordered 09/17/23
Ordered By: Andrei Duarte
Discharge Date and Time
Discharge Date/Time: 09/17/23 16:01
== END 2023-09-17 16:01 | disposition home health service (06) | DRG 872 ==
LOC: 4 EAST ACU 12:50
PROVIDERS: ADMITTING PHYSICIAN Internal Medicine; ATTENDING PHYSICIAN Internal Medicine; CONSULT PHYSICIAN Internal Medicine Infectious Disease; EMERGENCY PHYSICIAN Emergency Medicine; FAMILY PHYSICIAN Family Medicine
PROC: 30233N1 Transfusion of Nonautologous Red Blood Cells into Peripheral Vein, Percutaneous Approach (ICD-10-PCS; 2023-09-16)
DX: A41.9 Sepsis, unspecified organism (principal); L03.211 Cellulitis of face; E87.1 Hypo-osmolality and hyponatremia; M86.18 Other acute osteomyelitis, other site; D63.8 Anemia in other chronic diseases classified elsewhere; E03.9 Hypothyroidism, unspecified; I10 Essential (primary) hypertension; Z85.818 Personal history of malignant neoplasm of other sites of lip, oral cavity, and pharynx; Z92.3 Personal history of irradiation; Z92.21 Personal history of antineoplastic chemotherapy
CPT/HCPCS: 70487; 70543; 80048; 80053; 82607; 82728; 82746; 83540; 83550; 83605; 84466; 85014; 85018; 85025; 86850; 86900; 86901; 86920; 87040; 87070; 87075; 87077; 87186; 87205; 92526; 92610; 96361; 96365; 96375; 99285; A9575; J2916; P9016; Q9967

== ENCOUNTER 2023-10-10 10:07 | Outpatient (RCR) | payer BC, SELFPAY | END 2023-10-11 13:07 | disposition home or self-care (01) | LOC: RST 10:07 | PROVIDERS: ATTENDING PHYSICIAN Radiology Radiation Oncology; FAMILY PHYSICIAN Family Medicine | DX: C10.9 Malignant neoplasm of oropharynx, unspecified (principal); R13.12 Dysphagia, oropharyngeal phase | CPT/HCPCS: 92526 ==

== ENCOUNTER → 2023-11-29 15:14 | Outpatient (REF) | payer BC, SELFPAY | LOC: MRI 3T 15:14 | PROVIDERS: ATTENDING PHYSICIAN Nurse Practitioner Family; FAMILY PHYSICIAN Family Medicine | DX: K76.89 Other specified diseases of liver (principal) | CPT/HCPCS: 74183; A9575 ==

== ENCOUNTER 2023-12-24 10:46 | Outpatient (RCR) | payer BC, SELFPAY | END 2023-12-24 23:59 | disposition home or self-care (01) | LOC: RST 10:46 | PROVIDERS: ATTENDING PHYSICIAN Otolaryngology; FAMILY PHYSICIAN Family Medicine | DX: C10.9 Malignant neoplasm of oropharynx, unspecified (principal); R47.89 Other speech disturbances | CPT/HCPCS: 92507; 92522 ==

== ENCOUNTER 2024-01-22 13:07 | Outpatient (RCR) | payer BC, SELFPAY | END 2024-01-22 23:59 | disposition home or self-care (01) | LOC: RST 13:07 | PROVIDERS: ATTENDING PHYSICIAN Otolaryngology; FAMILY PHYSICIAN Family Medicine | DX: C10.9 Malignant neoplasm of oropharynx, unspecified (principal); R47.89 Other speech disturbances | CPT/HCPCS: 92507 ==

== ENCOUNTER → 2024-01-23 12:52 | Outpatient (REF) | payer BC, SELFPAY | LOC: RAD 12:52 | PROVIDERS: ATTENDING PHYSICIAN Otolaryngology; FAMILY PHYSICIAN Family Medicine | DX: C06.0 Malignant neoplasm of cheek mucosa (principal) | CPT/HCPCS: 70491; Q9967 ==

== ENCOUNTER → 2024-02-12 12:48 | Outpatient (REF) | payer BC, SELFPAY ==
[2024-02-12 14:04] LABS: % Basophils 0.7 % (0-2); % Eosinophils 1.6 % (0-6); % Immature Granulocytes 0.7 % (0-0.5); % Lymphocytes 14.5 % (20.5-51.1); % Monocytes 8.3 % (1.7-9.3); % Neutrophils 74.2 % (42.2-75.2); Absolute Eosinophils 0.1 10^3/uL (0-0.7); Absolute Lymphocytes 0.9 10^3/uL (1.2-3.4); Absolute Monocytes 0.5 10^3/uL (0.1-0.6); Absolute Neutrophils 4.6 10^3/uL (1.4-6.5); Hematocrit 33.4 % (37.0-47.0); Hemoglobin 11.4 g/dL (12.0-16.0); Mean Corp Hgb Conc. 34.1 g/dL (33.0-37.0); Mean Corpuscular Hgb 31.1 pg (27.0-31.0); Mean Corpuscular Volume 91.3 fL (81.0-99.0); Mean Platelet Volume 9.4 fL (7.4-10.4); Nucleated Red Blood Cells % 0 %; Platelet Count 253 10^3/uL (130-400); Red Blood Cell Count 3.66 10^6/uL (4.20-5.40); Red Cell Dist. Width 13.5 % (11.5-14.5); White Blood Cell Count 6.2 10^3/uL (4.8-10.8)
[2024-02-12 14:39] LABS: ALT (SGPT) 13 U/L (0-35); AST (SGOT) 29 U/L (14-36); Albumin 4.6 g/dl (3.5-5.0); Alkaline Phosphatase 101 U/L (38-126); Blood Urea Nitrogen 21 mg/dl (7-17); Calcium 10.7 mg/dl (8.4-10.2); Carbon Dioxide 30 mmol/L (22-30); Chloride 101 mmol/L (98-107); Glucose 100 mg/dl (70-99); Potassium 4.2 mmol/L (3.5-5.1); Sodium 137 mmol/L (135-145); Total Bilirubin 0.4 mg/dl (0.2-1.3); Total Protein 7.1 g/dl (6.3-8.2); eGFR > 60.00
== END ==
LOC: REG 12:48
PROVIDERS: ATTENDING PHYSICIAN Otolaryngology; FAMILY PHYSICIAN Family Medicine
DX: C06.0 Malignant neoplasm of cheek mucosa (principal)
CPT/HCPCS: 36415; 80053; 85025; 93005

== ENCOUNTER 2024-02-19 10:05 | Outpatient (RCR) | payer BC, SELFPAY | END 2024-02-19 23:59 | disposition home or self-care (01) | LOC: RST 10:05 | PROVIDERS: ATTENDING PHYSICIAN Otolaryngology; FAMILY PHYSICIAN Family Medicine | DX: R47.89 Other speech disturbances (principal); C10.9 Malignant neoplasm of oropharynx, unspecified | CPT/HCPCS: 92507 ==

== ENCOUNTER 2024-03-21 16:27 | Emergency (ER) | payer BC, SELFPAY ==
[2024-03-21 16:30] VITALS: BP 126/94
--- NOTE | 2024-03-21 18:48 | ED.GENMED ---
History of Present Illness
General
Chief Complaint: Catheter/Tube Problem
Source: patient
Exam Limitations: none
Time Seen by Provider: 03/21/24 17:02
History of Present Illness
History of Present Illness:
53-year-old female with a history of squamous cell carcinoma left buccal mucosa who currently has a Dobbhoff tube in for short-term feeding. She states she tried to push blueberries down the tube. No vomiting.
Past History
Past History
ED Past Medical History: Cancer (Buccal mucosa squamous cell cancer)
ED Past Surgical History: Other (Flap from the thigh flap from the forearm to the face)
Social History
Tobacco: Non-smoker
Alcohol: None
Living: with family
Phy Exam
Physical Exam
Physical Exam:
CONSTITUTIONAL Vital signs reviewed, Patient alert and oriented to person, place and time. Well-appearing
HEAD atraumatic, normocephalic.
EYES eyelids normal to inspection, Extraocular muscles intact, Conjunctiva normal, Sclera normal.
NECK normal range of motion, Trachea midline, no jugular venous distention.
Dobbhoff tube noted in the left naris sutured into the
RESP no respiratory distress
BACK No obvious deformities
UPPER EXTREMITY Gross Range of motion normal, gross motor strength normal
LOWER EXTREMITY Gross range of motion normal, Gross motor strength normal
NEURO Speech normal, No focal motor deficits include, Winifred coma scale 15, Memory normal, Cranial Nerves intact to screening exam.
SKIN Skin warm, dry, and normal in color.
PSYCHIATRIC Patient oriented to person place and time, Normal affect.
Course
Orders/Labs/Results
Orders:
Orders
03/21/24 18:06
Abdomen Xray - 1 View [CR Abdomen - 1 View] Urgent
Comment:
Reason For Exam: tube check
Vital Signs
Initial and Last Documented VS:
Initial Vital Signs
Temp Pulse Resp BP Pulse Ox
98.3 F 88 18 126/94 99
03/21/24 16:30 03/21/24 16:30 03/21/24 16:30 03/21/24 16:30 03/21/24 16:30
Last Documented Vital Signs
Temp Pulse Resp BP Pulse Ox
98.3 F 88 18 126/94 99
03/21/24 16:30 03/21/24 16:30 03/21/24 16:30 03/21/24 16:30 03/21/24 16:30
MDM/Problems Addressed
MDM/Problems Addressed:
Clogged Dobbhoff tube, squamous cell cancer
*Radiology
Radiology exam reviewed: preliminary read by ED provider (Dobbhoff in correct location) and radiology read reviewed
*Pulse Oximetry
Patient hypoxic: no
*Critical Care Note
Total Time (30-74mins, 75-104mins- exclusive of procedures): Not Applicable
Data Reviewed
Source: patient and spouse
Patient Management
Escalation/DeEscalation of care consider admission/obs:
RN was able to flush tube. Now functioning normally. Okay for discharge and outpatient follow-up
ED Attending Note
-
Portions of this chart may have been created with voice recognition software.� Occasional wrong word or��sound alike� substitutions may have occurred due to the inherent limitations of voice recognition software.
Discharge Plan
Departure
Patient Disposition: Home (Routine Discharge)
Date of Disposition: 03/21/24
Time of Disposition: 18:48
Patient with high blood pressure during this ER visit?: Yes
Discharge Problem:
Blockage of feeding tube
Instructions: How to Care for Nasogastric Tube, BLOOD PRESSURE
Prescriptions:
No Action
acetaminophen [Tylenol] 325 mg Tablet
650 mg PO Q4HPRN PRN (Reason: mild pain)
aspirin 325 mg Tablet
325 mg PO DAILY
cyanocobalamin (vitamin B-12) 1,000 mcg Tablet
1,000 mcg PO DAILY
calcium carbonate 500 mg calcium (1,250 mg) Tablet
500 mg PO DAILY
vitamin B complex Capsule
1 cap PO DAILY
magnesium oxide 400 mg magnesium Tablet
400 mg PO DAILY
levothyroxine 100 MCG tablet
100 mcg PO MOTUWETHFRSA@0700
Ampicillin/Sulbactam 3 G [Unasyn] 3 GM
0.9% Sodium Chloride 100 ml [Nss] 100 ML
240 mls/hr IV Q6H
Ordered By: Andrei Duarte MD
Last Taken: Unknown
Referrals:
Nury Dalton MD [Family Provider] -
Activity Restrictions/Additional Instructions:
Be sure to flush as discussed. Crush any pills as small as you can. Avoid any solid foods.
Interventions
Interventions:
*Risk Screen - Suicide Last Done: 03/21/24 18:08
*General Assessment Last Done: 03/21/24 16:30
*Neglect/Abuse Screening Last Done: 03/21/24 18:07
WC-Iusnsj-Wcovnpfbac Assessment Last Done: 03/21/24 18:08
Discharge Date and Time
Print Language: LIBYAN
== END 2024-03-21 18:54 | disposition home or self-care (01) ==
LOC: EMR 16:27
PROVIDERS: EMERGENCY PHYSICIAN Emergency Medicine; FAMILY PHYSICIAN Family Medicine
DX: K94.23 Gastrostomy malfunction (principal)
CPT/HCPCS: 99283; 74018

== ENCOUNTER → 2024-04-01 12:56 | Outpatient (REF) | payer BC, SELFPAY | LOC: RAD 12:56 | PROVIDERS: ATTENDING PHYSICIAN Otolaryngology; FAMILY PHYSICIAN Family Medicine | DX: C06.0 Malignant neoplasm of cheek mucosa (principal) | CPT/HCPCS: 70491; Q9967 ==

== ENCOUNTER → 2024-07-28 15:32 | Outpatient (REF) | payer BC, SELFPAY ==
[2024-07-28 16:21] LABS: % Basophils 0.5 % (0-2); % Eosinophils 1.4 % (0-6); % Immature Granulocytes 0.3 % (0-0.5); % Lymphocytes 20.7 % (20.5-51.1); % Monocytes 12.1 % (1.7-9.3); Absolute Eosinophils 0.1 10^3/uL (0-0.7); Absolute Lymphocytes 1.6 10^3/uL (1.2-3.4); Absolute Monocytes 0.9 10^3/uL (0.1-0.6); Hematocrit 34.6 % (37.0-47.0); Hemoglobin 11.6 g/dL (12.0-16.0); Mean Corp Hgb Conc. 33.5 g/dL (33.0-37.0); Mean Corpuscular Hgb 30.5 pg (27.0-31.0); Mean Corpuscular Volume 91.1 fL (81.0-99.0); Mean Platelet Volume 8.8 fL (7.4-10.4); Nucleated Red Blood Cells % 0 %; Platelet Count 250 10^3/uL (130-400); Red Cell Dist. Width 13.2 % (11.5-14.5); White Blood Cell Count 7.7 10^3/uL (4.8-10.8)
[2024-07-28 16:43] LABS: ALT (SGPT) 13 U/L (0-35); AST (SGOT) 25 U/L (14-36); Albumin 4.3 g/dl (3.5-5.0); Alkaline Phosphatase 101 U/L (38-126); Blood Urea Nitrogen 27 mg/dl (7-17); Calcium 9.9 mg/dl (8.4-10.2); Carbon Dioxide 32 mmol/L (22-30); Chloride 93 mmol/L (98-107); Glucose 98 mg/dl (70-99); Potassium 4.2 mmol/L (3.5-5.1); Sodium 133 mmol/L (135-145); Total Bilirubin < 0.1 mg/dl (0.2-1.3); Total Protein 7.1 g/dl (6.3-8.2); eGFR > 60.00
== END ==
LOC: RAD 15:32
PROVIDERS: ATTENDING PHYSICIAN Otolaryngology; FAMILY PHYSICIAN Family Medicine; REFERRING PHYSICIAN Otolaryngology
DX: C06.0 Malignant neoplasm of cheek mucosa (principal); Z92.3 Personal history of irradiation; Z01.810 Encounter for preprocedural cardiovascular examination
CPT/HCPCS: 36415; 70491; 80053; 85025; 93005; Q9967

== ENCOUNTER → 2024-11-17 12:56 | Outpatient (REF) | payer BC, SELFPAY ==
[2024-11-17 15:11] LABS: ALT (SGPT) 14 U/L (0-35); AST (SGOT) 23 U/L (14-36); Albumin 4.7 g/dl (3.5-5.0); Alkaline Phosphatase 116 U/L (38-126); Blood Urea Nitrogen 28 mg/dl (7-17); Calcium 11.2 mg/dl (8.4-10.2); Carbon Dioxide 28 mmol/L (22-30); Chloride 99 mmol/L (98-107); Glucose 90 mg/dl (70-99); Potassium 4.3 mmol/L (3.5-5.1); Sodium 137 mmol/L (135-145); Total Bilirubin 0.5 mg/dl (0.2-1.3); Total Protein 8.1 g/dl (6.3-8.2); eGFR > 60.00
[2024-11-17 15:20] LABS: Total Iron Binding Capacity 354 ug/dl (265-497)
[2024-11-17 15:32] LABS: % Basophils 0.9 % (0-2); % Eosinophils 2.4 % (0-6); % Immature Granulocytes 0.4 % (0-0.5); % Lymphocytes 23.9 % (20.5-51.1); % Neutrophils 63.4 % (42.2-75.2); Absolute Basophils 0.1 10^3/uL (0-0.2); Absolute Eosinophils 0.2 10^3/uL (0-0.7); Absolute Lymphocytes 1.8 10^3/uL (1.2-3.4); Absolute Monocytes 0.7 10^3/uL (0.1-0.6); Absolute Neutrophils 4.7 10^3/uL (1.4-6.5); Hematocrit 32.3 % (37.0-47.0); Hemoglobin 10.7 g/dL (12.0-16.0); Mean Corp Hgb Conc. 33.1 g/dL (33.0-37.0); Mean Corpuscular Hgb 28.6 pg (27.0-31.0); Mean Corpuscular Volume 86.4 fL (81.0-99.0); Mean Platelet Volume 9.5 fL (7.4-10.4); Nucleated Red Blood Cells % 0 %; Platelet Count 358 10^3/uL (130-400); Red Blood Cell Count 3.74 10^6/uL (4.20-5.40); White Blood Cell Count 7.4 10^3/uL (4.8-10.8)
[2024-11-17 15:42] LABS: TSH Reflex To Free T4 7.64 uIU/ml (0.47-4.68)
[2024-11-17 15:46] LABS: Ferritin 38.7 ng/ml (11.1-264.0)
[2024-11-17 15:57] LABS: Iron 52 ug/dl (37-170); Percent Saturation 14 % (20-50)
[2024-11-17 16:10] LABS: Free T4 1.28 ng/dl (0.78-2.19)
[2024-11-17 16:18] LABS: Folate > 20.0 ng/ml (2.76-20); Vitamin B12 > 1000 pg/ml (239-931)
== END ==
LOC: RAD 12:56
PROVIDERS: ATTENDING PHYSICIAN Internal Medicine Hematology & Oncology; FAMILY PHYSICIAN Family Medicine
DX: C06.0 Malignant neoplasm of cheek mucosa (principal)
CPT/HCPCS: 36415; 70492; 80053; 82607; 82728; 82746; 83540; 83550; 84439; 84443; 85025; 93005; Q9967

== ENCOUNTER → 2025-03-12 16:04 | Outpatient (REF) | payer BC, SELFPAY | LOC: RAD 16:04 | PROVIDERS: ATTENDING PHYSICIAN Specialist; FAMILY PHYSICIAN Family Medicine | DX: K94.23 Gastrostomy malfunction (principal) | CPT/HCPCS: 49465 ==

== ENCOUNTER → 2025-04-07 10:25 | Outpatient (REF) | payer BC, SELFPAY ==
[2025-04-07 11:46] LABS: Hematocrit 35.0 % (37.0-47.0); Hemoglobin 11.4 g/dL (12.0-16.0); Mean Corp Hgb Conc. 32.6 g/dL (33.0-37.0); Mean Corpuscular Volume 86.0 fL (81.0-99.0); Nucleated Red Blood Cells % 0 %; Platelet Count 255 10^3/uL (130-400); Red Cell Dist. Width 14.6 % (11.5-14.5)
[2025-04-07 12:19] LABS: ALT (SGPT) 20 U/L (0-35); AST (SGOT) 30 U/L (14-36); Albumin 4.4 g/dl (3.5-5.0); Alkaline Phosphatase 132 U/L (38-126); Blood Urea Nitrogen 30 mg/dl (7-17); Calcium 10.7 mg/dl (8.4-10.2); Carbon Dioxide 30 mmol/L (22-30); Chloride 102 mmol/L (98-107); Glucose 93 mg/dl (70-99); Potassium 4.5 mmol/L (3.5-5.1); Sodium 140 mmol/L (135-145); Total Protein 7.7 g/dl (6.3-8.2); eGFR > 60.00
== END ==
LOC: REG 10:25
PROVIDERS: ATTENDING PHYSICIAN Nurse Practitioner Family
DX: D64.9 Anemia, unspecified (principal); Z01.818 Encounter for other preprocedural examination
CPT/HCPCS: 36415; 80053; 85025; 93005

== ENCOUNTER → 2025-05-12 13:55 | Outpatient (REF) | payer BC, SELFPAY | LOC: RAD 13:55 | PROVIDERS: ATTENDING PHYSICIAN Nurse Practitioner Adult Health; FAMILY PHYSICIAN Family Medicine | DX: K94.23 Gastrostomy malfunction (principal); B49 Unspecified mycosis | CPT/HCPCS: 49465 ==

== ENCOUNTER → 2025-05-26 16:33 | Outpatient (REF) | payer BC, SELFPAY | LOC: RAD 16:33 | PROVIDERS: ATTENDING PHYSICIAN Internal Medicine Hematology & Oncology; FAMILY PHYSICIAN Family Medicine | DX: C06.0 Malignant neoplasm of cheek mucosa (principal) | CPT/HCPCS: 70491; 71260; Q9967 ==